=== PATIENT | female | born 1950 | race Two or more races ===

== ENCOUNTER 2016-12-26 02:47 | Emergency (ER) | payer OTHER, MEDICAID ==
[2016-12-26 03:06] VITALS: BP 142/90; BMI 25.0
--- NOTE | 2016-12-26 03:24 | DR.GENAD ---
HPI - PCP Primary Care Physician: Dr. Blackmon - Complaint/Symptoms Chief Complaint:: C/O of Epigastric pain through to back and up through chest and up into shoulders. Patient also c/o nausea but denies any vomiting. Patient states that she thinks that she would feel better is she could vomit. Self Treatment fo Chief Complaint: Patient has been on Bactrim for UTI x 3 doses and the pain has started since then. - Source History Provided: Patient, Family Member - Mode of Arrival Mode of Arrival: Ambulatory - Timing Onset of Chief Complaint: 12/25/16 PMH - PMH Past Medical History: Yes Past Medical History: Depression, GERD Past Medical History Comment: Colitis Past Surgical History: Yes Surgical History: Cholecystectomy, Hysterectomy Past Surgical History Comment: Varicose veins stripped - Family History History of Family Medical Conditions: Yes Family Medical History: Diabetes Mellitus, Hypertension Family Medical History Comment: Renal disease - Social History Does any household member use tobacco: No Alcohol Use: None Do you use any recreational Drugs:: No Lives With: Family Lives Where: Home - infectious screening In the last 2 months have you had wt loss of >10#?: NO Have you had fever, night sweats or hemotysis?: No Have you traveled outside the country in the last 6 months?: Yes Details about traveling: She has traveled to [place] and came back in September Isolation: Standard ROS - Review of Systems Eyes: No Symptoms Reported ENTM: No Symptoms Reported Respiratoy: No Symptoms Reported Cardiovascular: No Symptoms Reported Gastrointestinal/Abdominal: Abdominal Pain, Nausea Genitourinary: No Symptoms Reported Neurological: No Symptoms Reported Musculoskeletal: No Symptoms Reported Integumentary: No Symptoms Reported Hematologic/Lymphatic: No Symptoms Reported Endocrine: No Symptoms Reported Psychiatric: No Symptoms Reported All Other Systems: Reviewed and Negative PE - Vital Signs Vitals: Temperature 97.7 F Pulse Rate 70 Respiratory Rate 20 Blood Pressure [Right Arm] 106/56 Blood Pressure 142/90 O2 Sat by Pulse Oximetry 96 - General Limitations: Language Barrier General Appearance: Alert, In No Apparent Distress - Head Head Exam: Normal Inspection, Atraumatic - Eyes Eye exam: Normal Appearance, PERRL, EOMI - ENT ENT Exam: Normal Exam External Ear Exam: Normal External Inspection TM/Canal Exam: Bilateral Normal Nose Exam: Normal Nose Exam Mouth Exam: Normal Inspection Throat Exam: Normal Inspection - Neck Neck Exam: Normal Inspection - Chest Chest Inspection: Normal Inspection - Respiratory Respiratory Exam: Normal Lung Sounds Bilat Respiratory Exam: Bilateral Clear to Auscultation - Cardiovascular Cardiovascular Exam: Regular Rate - Abdominal Exam Abdominal Exam: Normal Inspection Abdominal Tenderness: RLQ - Extremities Extremities Exam: Normal Inspection, Full ROM - Back Back Exam: Normal Inspection, Full ROM - Neurologic Neurological Exam: Alert, Oriented X3, CN II-XII Intact - Psychiatric Psychiatric Exam: Normal Affect, Normal Mood - Skin Skin Exam: Warm, Dry, Intact Course - Reevaluation 1st: Unchanged ROR - Labs Reviewed Result Diagrams: 12/26/16 03:30 12/26/16 03:30 Laboratory: WBC 4.7 X10^3/uL (3.6-10.0) 12/26/16 03:30 RBC 4.54 X10^6/uL (3.5-5.4) 12/26/16 03:30 Hgb 13.5 g/dL (12.0-16.0) 12/26/16 03:30 Hct 39.1 % (36.0-47.0) 12/26/16 03:30 MCV 86.2 fL (80.0-100.0) 12/26/16 03:30 MCH 29.8 pg (27.0-34.0) 12/26/16 03:30 MCHC 34.5 g/dL (33.0-35.0) 12/26/16 03:30 RDW 13.2 % (11.6-16.5) 12/26/16 03:30 Plt Count 194 X10^3/uL (150.0-450.0) 12/26/16 03:30 MPV 7.7 fL (7.4-11.0) 12/26/16 03:30 Neut % 58.1 % (42.0-75.0) 12/26/16 03:30 Lymph % 30.3 % (21.0-51.0) 12/26/16 03:30 Nolan % 8.0 % (0.0-13.0) 12/26/16 03:30 Eos % 3.2 % (0.9-2.9) H 12/26/16 03:30 Baso % 0.4 % (0.2-1.0) 12/26/16 03:30 Neut # 2.8 x10^3/uL (2.2-4.8) 12/26/16 03:30 Lymph # 1.4 X10^3/uL (1.3-2.9) 12/26/16 03:30 Nolan # 0.4 x10^3/uL (0.3-0.8) 12/26/16 03:30 Eos # 0.2 x10^3/uL (0.0-0.2) 12/26/16 03:30 Baso # 0.0 X10^3/uL (0.0-0.1) 12/26/16 03:30 Absolute Nucleated RBC 0.0 /100WBC 12/26/16 03:30 Sodium 141 mmol/L (136-145) 12/26/16 03:30 Corrected Sodium 141 mmol/L (136-145) 12/26/16 03:30 Potassium 3.9 mmol/L (3.5-5.1) 12/26/16 03:30 Chloride 107 mmol/L (98-107) 12/26/16 03:30 Carbon Dioxide 28.2 mmol/L (21-32) 12/26/16 03:30 BUN 11 mg/dL (7-18) 12/26/16 03:30 Creatinine 1.17 mg/dL (0.55-1.02) H 12/26/16 03:30 Est GFR (MDRD) Af Amer 60 (>60) 12/26/16 03:30 Est GFR (MDRD) Non-Af 49 (>60) L 12/26/16 03:30 Glucose 111 mg/dL (65-99) H 12/26/16 03:30 Calcium 9.5 mg/dL (8.5-10.1) 12/26/16 03:30 Corrected Calcium TNP 12/26/16 03:30 Total Bilirubin 0.20 mg/dL (0.2-1.0) 12/26/16 03:30 AST 14 Units/L (15-37) L 12/26/16 03:30 ALT 21 Units/L (12-78) 12/26/16 03:30 Alkaline Phosphatase 101 Units/L (46-116) 12/26/16 03:30 Creatine Kinase 57 Units/L (26-192) 12/26/16 03:30 CK-MB (CK-2) < 1.0 ng/mL (0-4.0) 12/26/16 03:30 CK/CKMB % Calc 1.8 % (<4) 12/26/16 03:30 Troponin I < 0.02 ng/mL (0-1.5) 12/26/16 03:30 C-Reactive Protein 0.90 mg/L (0-3.0) 12/26/16 03:30 Total Protein 7.8 g/dL (6.4-8.2) 12/26/16 03:30 Albumin 4.0 g/dL (3.4-5.0) 12/26/16 03:30 Globulin 3.8 g/dL (2.5-4.5) 12/26/16 03:30 Albumin/Globulin Ratio 1.1 Ratio (1.1-2.1) 12/26/16 03:30 Amylase 71 Units/L (25-115) 12/26/16 03:30 Lipase 172 Units/L (73-393) 12/26/16 03:30 H. pylori IgG Antibody Negative (NEGATIVE) 12/26/16 03:30 - XRAY XRAY Interpreted by: Radiologist (CT Abd/Pelv: No significant abnormality identified) - Diagnosis Discharge Problem: Abdominal pain Qualifiers: Abdominal location: epigastric Qualified Code(s): R10.13 - Epigastric pain - Discharge Plan Condition: Stable - Follow ups/Referrals Follow ups/Referrals: Kurt Blackmon [Primary Care Provider] - 3 days - Instructions
[2016-12-26] MEDS ORDERED: MORPHINE SULFATE INJ 4 MG IVP ONE (03:28)
[2016-12-26] MEDS ORDERED: NS 1000 ML 1,000 ML ONE (03:32)
[2016-12-26] MEDS ORDERED: MORPHINE SULFATE INJ 4 MG ONE (03:33)
[2016-12-26 03:44] LABS: BASOPHILS % (AUTO) 0.4 % (0.2-1.0); EOSINOPHILS # (AUTO) 0.2 x10^3/uL (0.0-0.2); EOSINOPHILS % (AUTO) 3.2 % (0.9-2.9); HEMATOCRIT 39.1 % (36.0-47.0); HEMOGLOBIN 13.5 g/dL (12.0-16.0); LYMPHOCYTES # (AUTO) 1.4 X10^3/uL (1.3-2.9); LYMPHOCYTES % (AUTO) 30.3 % (21.0-51.0); MEAN CORPUSCULAR HEMOGLOBIN 29.8 pg (27.0-34.0); MEAN CORPUSCULAR HGB CONC 34.5 g/dL (33.0-35.0); MEAN CORPUSCULAR VOLUME 86.2 fL (80.0-100.0); MEAN PLATELET VOLUME 7.7 fL (7.4-11.0); MONOCYTES # (AUTO) 0.4 x10^3/uL (0.3-0.8); NEUTROPHILS # (AUTO) 2.8 x10^3/uL (2.2-4.8); NEUTROPHILS % (AUTO) 58.1 % (42.0-75.0); PLATELET COUNT 194 X10^3/uL (150.0-450.0); RED BLOOD COUNT 4.54 X10^6/uL (3.5-5.4); RED CELL DISTRIBUTION WIDTH 13.2 % (11.6-16.5); WHITE BLOOD COUNT 4.7 X10^3/uL (3.6-10.0)
[2016-12-26] MEDS ORDERED: BENADRYL INJ 50 MG VIAL ONE (03:51)
[2016-12-26] MEDS ORDERED: BENADRYL INJ 50 MG VIAL IVP ONE (03:52)
[2016-12-26 03:53] LABS: ALANINE AMINOTRANSFERASE 21 Units/L (12-78); ALKALINE PHOSPHATASE 101 Units/L (46-116); AMYLASE 71 Units/L (25-115); ASPARTATE AMINO TRANSFERASE 14 Units/L (15-37); BLOOD UREA NITROGEN 11 mg/dL (7-18); CALCIUM 9.5 mg/dL (8.5-10.1); CARBON DIOXIDE 28.2 mmol/L (21-32); CHLORIDE 107 mmol/L (98-107); COR NA(FOR HYPERGLY) 141 mmol/L (136-145); CREATININE 1.17 mg/dL (0.55-1.02); LIPASE 172 Units/L (73-393); SODIUM 141 mmol/L (136-145); TOTAL PROTEIN 7.8 g/dL (6.4-8.2); eGFR BLACK RACES 60 (>60); eGFR NON BLACK RACES 49 (>60)
[2016-12-26] MEDS ORDERED: ZOFRAN INJ 4 MG VIAL IVP ONE (03:59)
[2016-12-26] MEDS ORDERED: ZOFRAN INJ 4 MG VIAL ONE (03:59)
[2016-12-26] MEDS ORDERED: NS 1000 ML 1,000 ML IV SCH (04:00)
[2016-12-26] MEDS ORDERED: NS 100 ML IV 100 ML IV ONE (05:17)
[2016-12-26 08:09] LABS: CKMB % 1.8 % (<4); CREATINE KINASE 57 Units/L (26-192); CREATINE KINASE MB < 1.0 ng/mL (0-4.0); TROPONIN I < 0.02 ng/mL (0-1.5)
== END 2016-12-26 09:00 | disposition home or self-care (01) ==
LOC: ER 02:47
DX: R10.13 Epigastric pain (principal)
CPT/HCPCS: 36415; 74177; 80053; 82150; 82550; 82553; 83690; 84484; 85025; 86140; 86677; 96365; 96367; 96374; 96375; 99283; A4222; J1200; J2270; J2405

== ENCOUNTER 2017-02-19 08:16 | Day surgery (SDC) | payer OTHER, MEDICAID ==
[2017-02-19] MEDS ORDERED: D5 LR 1000 ML 1,000 ML IV ONE (08:28)
[2017-02-19] MEDS ORDERED: DIPRIVAN VIAL 20 ML ONE (09:59)
[2017-02-19 10:32] VITALS: BP 115/56
== END 2017-02-19 10:30 | disposition home or self-care (01) ==
LOC: SURG1 08:16
PROVIDERS: ATTEND Internal Medicine Gastroenterology
PROC: 0DB68ZX Excision of Stomach, Via Natural or Artificial Opening Endoscopic, Diagnostic (ICD-10-PCS; principal; 2017-02-19 12:15)
PROC: 0DB88ZX Excision of Small Intestine, Via Natural or Artificial Opening Endoscopic, Diagnostic (ICD-10-PCS; principal; 2017-02-19 12:15)
PROC: 0DJ08ZZ Inspection of Upper Intestinal Tract, Via Natural or Artificial Opening Endoscopic (ICD-10-PCS; principal; 2017-02-19 12:15)
DX: R10.13 Epigastric pain (principal); R11.0 Nausea; K20.8 Other esophagitis; K44.9 Diaphragmatic hernia without obstruction or gangrene; K29.60 Other gastritis without bleeding
CPT/HCPCS: A4217; J3490; J7120

== ENCOUNTER 2017-02-26 08:20 | Day surgery (SDC) | payer OTHER, MEDICAID ==
[2017-02-26] MEDS ORDERED: D5 LR 1000 ML 1,000 ML IV ONE (08:35)
[2017-02-26] MEDS ORDERED: DIPRIVAN VIAL 20 ML ONE (10:52)
[2017-02-26 12:35] VITALS: BP 118/67
== END 2017-02-26 11:40 | disposition home or self-care (01) ==
LOC: SURG1 08:20
PROVIDERS: ATTEND Internal Medicine Gastroenterology
PROC: 0DJD8ZZ Inspection of Lower Intestinal Tract, Via Natural or Artificial Opening Endoscopic (ICD-10-PCS; principal; 2017-02-26 11:15)
PROC: 0DBK8ZX Excision of Ascending Colon, Via Natural or Artificial Opening Endoscopic, Diagnostic (ICD-10-PCS; principal; 2017-02-26 11:15)
DX: R10.32 Left lower quadrant pain (principal); R10.12 Left upper quadrant pain; K92.1 Melena; R19.4 Change in bowel habit; K63.5 Polyp of colon; K63.89 Other specified diseases of intestine; K64.0 First degree hemorrhoids; D12.2 Benign neoplasm of ascending colon
CPT/HCPCS: A4217; J3490; J7120

== ENCOUNTER 2019-07-27 22:30 | Inpatient (IN) ==
[2019-07-27] MEDS ORDERED: LEVSIN/MAALOX/LIDOC VISC PO ONE (22:46)
[2019-07-27] MEDS ORDERED: LEVSIN/MAALOX/LIDOC VISC ONE (22:52)
--- NOTE | 2019-07-27 22:58 | ED.ABDFE ---
HPI Time Seen Time Seen by Provider: 07/27/19 22:46 PCP Primary Care Physician: MELISSA Mccoy Doctors Chief Complaint Comments: A 68 y/o female presenting with epigastric abdominal and lower abdominal pain times 1.5 weeks now. It has been present co nstantly since after her lunch at about 1400 hrs. today. She states it worsens with meals. She has not had nausea or vomiting. She has known PUD, had EGD about 5 months ago and is maintained on both Protonix 40 mg daily + Pepcid 20 mg BID both of which she has taken today. She denies hx. of nicotine or alcohol use. She is s/p cholecystectomy by hx. Chief Complaint:: ABDOMINAL PAIN; REFLUX X1 WEEK COVID-19 Coronavirus risk:travel/contact w/high risk person: No Has patient experienced Coronavirus symptoms: No Reviewed Nurses Notes Review: Yes Source History Provided: Patient and Bystander Mode of arrival Mode of Arrival: Wheelchair Timing Onset of Chief Complaint: 07/16/19 Duration How lon Duration: Days Location Location: Epigastric Context History of: Similar pain (dx) (PUD) Modifying factors Worsening Factors: Food Associated signs and symptoms Associated Signs and Symptoms: None PMH PMH Past Medical History: Yes Past Medical History: Anxiety, Depression, GERD and PUD Past Surgical History: Yes Surgical History: Cholecystectomy and Hysterectomy Family History History of Family Medical Conditions: Yes Family Medical History: Diabetes Mellitus and Hypertension Social History Do you use any recreational Drugs:: No Travel Risk Coronavirus risk:travel/contact w/high risk person: No Has patient experienced Coronavirus symptoms: No Infectious screening In the last 2 months have you had wt loss of >10#?: NO Have you had fever, night sweats or hemotysis?: No Have you traveled outside the country in the last 6 months?: No Isolation: Standard ROS Review of Systems Constitutional: No Symptoms Reported Eyes: No Symptoms Reported ENTM: No Symptoms Reported Respiratoy: No Symptoms Reported Cardiovascular: No Symptoms Reported Gastrointestinal/Abdominal: Abdominal Pain (epigastric) Genitourinary: No Symptoms Reported Neurological: No Symptoms Reported Musculoskeletal: No Symptoms Reported Integumentary: No Symptoms Reported Hematologic/Lymphatic: No Symptoms Reported Endocrine: No Symptoms Reported Psychiatric: No Symptoms Reported All Other Systems: Reviewed and Negative PE Vital Signs Vitals: Temperature 98.7 F Pulse Rate [Radial] 56 Pulse Rate 59 Respiratory Rate 16 Blood Pressure [Right Arm] 121/56 Blood Pressure 140/67 O2 Sat by Pulse Oximetry 94 General Limitations: No Limitations and Language Barrier (her daughter was here translating for us. ) General Appearance: Alert and In No Apparent Distress Head Head Exam: Normal Inspection, Atraumatic and Normocephalic Eyes Eye exam: Normal Appearance and EOMI ENT ENT Exam: Normal Exam, Normal Oropharynx, Normal External Ear Exam and Mucous Membranes Moist Neck Neck Exam: Normal Inspection, Full ROM and Trachea Midline Chest Chest Inspection: Normal Inspection and Symmetric Chest Wall Rise Respiratory Respiratory Exam: Normal Lung Sounds Bilat Cardiovascular Cardiovascular Exam: Regular Rate, Normal Rhythm, Normal Heart Sounds, +S1 and +S2 Abdominal Exam Abdominal Exam: Normal Inspection, Normal Bowel Sounds, Soft and Tenderness; negative Distention, Guarding, Rebound, Rigidity, Dimnished Bowel Sounds, Hyperactive Bowel Sounds, Hypoactive Bowel Sounds, Organomegaly, Trauma, Incision, Ascites, Mass, Bruit, Pulsatile Mass and Hernia Abdominal Tenderness: RLQ, LLQ and Epigastrium Rectal Rectal Exam: Deferred Back Back Exam: Normal Inspection and Full ROM Extremeties Extremities Exam: Normal Inspection and Full ROM External Exam: Female: Deferred Neurologic Neurological Exam: Alert and Oriented X3 Psychiatric Psychiatric Exam: Normal Affect and Normal Mood Skin Skin Exam: Dry and Normal Color COURSE Reevaluation 1st: Improved (with regard to upper abdominal pain only) Education/Counseling Education/Counseling: Patient, Family, Education and Counseling Educated On: Treatment, Diagnosis, Prognosis and Needs for Follow Up ROR Labs Reviewed Laboratory Results Reviewed?: Yes Result Diagrams: 07/27/19 22:54 07/27/19 22:54 Laboratory: WBC 4.5 X10^3/uL (3.6-10.0) 07/27/19 22:54 RBC 4.08 X10^6/uL (3.5-5.4) 07/27/19 22:54 Hgb 12.6 g/dL (12.0-16.0) 07/27/19 22:54 Hct 36.7 % (36.0-47.0) 07/27/19 22:54 MCV 89.9 fL (80.0-100.0) 07/27/19 22:54 MCH 30.9 pg (27.0-34.0) 07/27/19 22:54 MCHC 34.3 g/dL (33.0-35.0) 07/27/19 22:54 RDW 13.8 % (11.6-16.5) 07/27/19 22:54 Plt Count 149 X10^3/uL (150.0-450.0) L 07/27/19 22:54 MPV 7.8 fL (7.4-11.0) 07/27/19 22:54 Neut % (Auto) 62.0 % (42.0-75.0) 07/27/19 22:54 Lymph % (Auto) 28.6 % (21.0-51.0) 07/27/19 22:54 Letcher % (Auto) 7.2 % (0.0-13.0) 07/27/19 22:54 Eos % (Auto) 1.5 % (0.9-2.9) 07/27/19 22:54 Baso % (Auto) 0.7 % (0.2-1.0) 07/27/19 22:54 Neut # (Auto) 2.8 x10^3/uL (2.2-4.8) 07/27/19 22:54 Lymph # (Auto) 1.3 X10^3/uL (1.3-2.9) 07/27/19 22:54 Letcher # (Auto) 0.3 x10^3/uL (0.3-0.8) 07/27/19 22:54 Eos # (Auto) 0.1 x10^3/uL (0.0-0.2) 07/27/19 22:54 Baso # (Auto) 0.0 X10^3/uL (0.0-0.1) 07/27/19 22:54 Absolute Nucleated RBC 0.0 /100WBC 07/27/19 22:54 Sodium 144 mmol/L (136-145) 07/27/19 22:54 Corrected Sodium 144 mmol/L (136-145) 07/27/19 22:54 Potassium 3.6 mmol/L (3.5-5.1) 07/27/19 22:54 Chloride 108 mmol/L (98-107) H 07/27/19 22:54 Carbon Dioxide 26.2 mmol/L (21-32) 07/27/19 22:54 BUN 10 mg/dL (7-18) 07/27/19 22:54 Creatinine 0.93 mg/dL (0.55-1.02) 07/27/19 22:54 Est GFR (MDRD) Af Amer > 60 (>60) 07/27/19 22:54 Est GFR (MDRD) Non-Af > 60 (>60) 07/27/19 22:54 Glucose 113 mg/dL (65-99) H 07/27/19 22:54 Calcium 9.3 mg/dL (8.5-10.1) 07/27/19 22:54 Corrected Calcium TNP 07/27/19 22:54 Total Bilirubin 0.20 mg/dL (0.2-1.0) 07/27/19 22:54 AST 12 Units/L (15-37) L 07/27/19 22:54 ALT 17 Units/L (12-78) 07/27/19 22:54 Alkaline Phosphatase 76 Units/L (46-116) 07/27/19 22:54 Total Protein 7.0 g/dL (6.4-8.2) 07/27/19 22:54 Albumin 3.8 g/dL (3.4-5.0) 07/27/19 22:54 Globulin 3.2 g/dL (2.5-4.5) 07/27/19 22:54 Albumin/Globulin Ratio 1.2 Ratio (1.1-2.1) 07/27/19 22:54 Amylase 48 Units/L (25-115) 07/27/19 22:54 Lipase 132 Units/L (73-393) 07/27/19 22:54 Opioid Opioid Risk Tool Age (Nikunj box if 16-45): No History of Preadolescent Sexual Abuse: No Total: 0 Total Score Risk Category: Low Risk Copyright: [facility] predicting aberrant behaviors Diagnosis Discharge Problem: Intussusception of jejunum, Pancreatic mass, PUD (peptic ulcer disease), Anxiety Abdominal pain Qualifiers: Abdominal location: upper abdomen, unspecified Qualified Code(s): R10.10 - Upper abdominal pain, unspecified ADDITIONAL NOTES Additional Notes Additional Notes: Name: JL MULLINS : 1950 Sex: F Location: ER Order Number(s): [id number] Procedure(s):ABDOMEN/PELVIS WITH CON Ordering Physician: EDITH HART Primary Care: Kurt Blackmon Service Date: 07/27/19 Service Time: 2346 CT abdomen and pelvis with contrast Indication: Epigastric pain COMPARISON November 23, 2018 TECHNIQUE Helical images through the abdomen and pelvis after IV and oral contrast per protocol. Coronal and sagittal reformats provided FINDINGS Limited images through the lower chest shows scarring in the lung bases. Review of bone windows demonstrates spine DJD without destructive osseous lesion Abdomen: Gallbladder is absent. The liver, spleen, adrenal glands, stomach and duodenum demonstrate no acute abnormality. The pancreas shows dilatation of the pancreas duct. Hypodensity is suggested of the body of the pancreas on axial image 36. This is ill-defined and apparently is causing upstream dilatation of the duct of the pancreas tail, measuring 2.4 x 2.0 x 1.9 centimeters on axial image 36 and coronal image 19 (AP, trans, cc). Pancreas neoplasm is suspected. The kidneys show no hydroureteronephrosis. Retroaortic left renal vein incidentally noted. The mass probably compresses the splenic vein on axial image 35, with perisplenic varices noted. These are new from the prior. Oral contrast enters the small bowel, which is mildly prominent, with minimal wall thickening. There is jejuno jejunal intussusception seen on sagittal image 12 and coronal images 31-18, measuring at least 7 centimeters in length. Colonic diverticulosis is noted, with relative collapse of the colon. Appendix is normal. Pelvis: Urinary bladder and rectum are normal. Uterus is absent. No adnexal region lesions seen. IMPRESSION 1. Pancreas massive dilatation of the pancreas ducts at the tail upstream from the mass. This invades the splenic vein which is occluded, with collateral varices seen around the stomach. Pancreas cancer is presumed. Surgical follow-up will be needed. 2. Mild prominence of the jejunum with minimal wall thickening and intussusception of jejunojejunostomy loops, as above. This could be transient and related to the mild jejunal inflammation, favoring an enteritis. Nevertheless, follow-up will be needed to exclude persistence of the intussusception and/or developing worsening bowel pathology. Surgical evaluation recommended. 3. Discussed with Fuentes by Dr. Strong Electronically signed by: ARCADIO STRONG (July 28, 2019 03:04:40)
[2019-07-27 23:10] LABS: BASOPHILS % (AUTO) 0.7 % (0.2-1.0); EOSINOPHILS # (AUTO) 0.1 x10^3/uL (0.0-0.2); EOSINOPHILS % (AUTO) 1.5 % (0.9-2.9); HEMATOCRIT 36.7 % (36.0-47.0); HEMOGLOBIN 12.6 g/dL (12.0-16.0); LYMPHOCYTES # (AUTO) 1.3 X10^3/uL (1.3-2.9); LYMPHOCYTES % (AUTO) 28.6 % (21.0-51.0); MEAN CORPUSCULAR HEMOGLOBIN 30.9 pg (27.0-34.0); MEAN CORPUSCULAR HGB CONC 34.3 g/dL (33.0-35.0); MEAN CORPUSCULAR VOLUME 89.9 fL (80.0-100.0); MEAN PLATELET VOLUME 7.8 fL (7.4-11.0); MONOCYTES # (AUTO) 0.3 x10^3/uL (0.3-0.8); MONOCYTES % (AUTO) 7.2 % (0.0-13.0); NEUTROPHILS # (AUTO) 2.8 x10^3/uL (2.2-4.8); PLATELET COUNT 149 X10^3/uL (150.0-450.0); RED BLOOD COUNT 4.08 X10^6/uL (3.5-5.4); RED CELL DISTRIBUTION WIDTH 13.8 % (11.6-16.5); WHITE BLOOD COUNT 4.5 X10^3/uL (3.6-10.0)
[2019-07-27 23:16] LABS: ALANINE AMINOTRANSFERASE 17 Units/L (12-78); ALBUMIN 3.8 g/dL (3.4-5.0); ALKALINE PHOSPHATASE 76 Units/L (46-116); AMYLASE 48 Units/L (25-115); ASPARTATE AMINO TRANSFERASE 12 Units/L (15-37); BLOOD UREA NITROGEN 10 mg/dL (7-18); CALCIUM 9.3 mg/dL (8.5-10.1); CARBON DIOXIDE 26.2 mmol/L (21-32); CHLORIDE 108 mmol/L (98-107); COR NA(FOR HYPERGLY) 144 mmol/L (136-145); CREATININE 0.93 mg/dL (0.55-1.02); LIPASE 132 Units/L (73-393); SODIUM 144 mmol/L (136-145); eGFR NON BLACK RACES > 60 (>60)
--- NOTE | 2019-07-28 03:06 | CT ---
CT abdomen and pelvis with contrastIndication: Epigastric painCOMPARISONSeptember 2018TECHNIQUEHelical images through the abdomen and pelvis after IV and oral contrast per protocol. Coronal and sagittal reformats providedFINDINGSLimited images through the lower chest shows scarring in the lung bases. Review of bone windows demonstrates spine DJD without destructive osseous lesionAbdomen: Gallbladder is absent. The liver, spleen, adrenal glands, stomach and duodenum demonstrate no acute abnormality. The pancreas shows dilatation of the pancreas duct. Hypodensity is suggested of the body of the pancreas on axial image 36. This is ill-defined and apparently is causing upstream dilatation of the duct of the pancreas tail, measuring 2.4 x 2.0 x 1.9 centimeters on axial image 36 and coronal image 19 (AP, trans, cc). Pancreas neoplasm is suspected.The kidneys show no hydroureteronephrosis. Retroaortic left renal vein incidentally noted. The mass probably compresses the splenic vein on axial image 35, with perisplenic varices noted. These are new from the prior.Oral contrast enters the small bowel, which is mildly prominent, with minimal wall thickening. There is jejuno jejunal intussusception seen on sagittal image 12 and coronal images 31-18, measuring at least 7 centimeters in length. Colonic diverticulosis is noted, with relative collapse of the colon. Appendix is normal.Pelvis: Urinary bladder and rectum are normal. Uterus is absent. No adnexal region lesions seen.IMPRESSION1. Pancreas massive dilatation of the pancreas ducts at the tail upstream from the mass. This invades the splenic vein which is occluded, with collateral varices seen around the stomach. Pancreas cancer is presumed. Surgical follow-up will be needed.2. Mild prominence of the jejunum with minimal wall thickening and intussusception of jejunojejunostomy loops, as above. This could be transient and related to the mild jejunal inflammation, favoring an enteritis. Nevertheless, follow-up will be needed to exclude persistence of the intussusception and/or developing worsening bowel pathology. Surgical evaluation recommended.3. Discussed with Fuentes by Dr. StrongElectronically signed by: ARCADIO STRONG (July 28, 2019 03:04:40)
[2019-07-28] MEDS ORDERED: TYLENOL 325 MG TAB PO PRN (03:23)
[2019-07-28] MEDS ORDERED: ZOFRAN INJ 4 MG VIAL IVP PRN (03:40)
[2019-07-28] MEDS ORDERED: ZOFRAN INJ 4 MG VIAL ONE (04:11)
[2019-07-28] MEDS ORDERED: NS 1000 ML 1,000 ML ONE (04:37)
[2019-07-28] MEDS: NS 1000 ML 1,000 ML IV SCH ×4 (04:40→23:18)
[2019-07-28 05:07] VITALS: BMI 21.7
[2019-07-28] MEDS: PROTONIX INJ 40 MG VIAL IVP SCH (10:46)
[2019-07-28] MEDS ORDERED: DILAUDID INJ IVP PRN (11:03)
[2019-07-28] MEDS ORDERED: TORADOL 15 MG VIAL IVP PRN (11:14)
[2019-07-28] MEDS: PEPCID TAB 20 MG PO SCH ×2 (12:52→21:36)
--- NOTE | 2019-07-28 14:11 | RAD ---
HISTORYSMALL BOWEL OBSTRUCTION, ABD PAINSTUDYKUB x-ray abdomen one viewCOMPARISONCT from same dayFINDINGSGI contrast is seen throughout the colon. Likely mild right-sided constipation. No contrast is seen in the small bowel. No evidence of small-bowel dilation. Minimal small bowel air is seen in the mid to distal small bowel. Surgical clips are seen in the right upper quadrant the abdomen.IMPRESSIONNo evidence of small-bowel obstruction. Likely mild right-sided constipation.Electronically signed by: Jt Monge (July 28, 2019 14:09:20)
[2019-07-28] MEDS ORDERED: NS 100 ML IV 100 ML IV ONE (14:46)
--- NOTE | 2019-07-28 16:51 | MRI ---
MRI, ABDOMEN W/WO CONTRASTClinical indication: Pancreatic massProcedure: Multiplanar multi sequence MRI of the abdomen were obtained with and without the administration of intravenous contrast according to standard departmental protocol.Contrast: 17 cc of MultiHanceComparisons:July 28, 2019, 04/03/2018Findings:MRI of the abdomen without contrast: No significant iron or fat deposition in the liver or spleen. No significant ascites.MRI of the abdomen with contrast: Liver and spleen are normal in size and morphology. No focal lesions. Gallbladder absent. No filling defects within the common bile duct. Common bile duct measures 12 mm. Pancreas demonstrates normal T1 signal. Redemonstrated within the body of the pancreas is a 2.6 x 2.8 cm late enhancing mass with upstream dilatation of the main pancreatic duct up to 7 mm. This mass appears to obliterate the splenic vein which is collateralized. Adrenal glands are normal Kidneys demonstrate normal cortical medullary differentiation. No hydronephrosis. No suspicious lymph nodes. Patient's previously mention intussusception is not visible.Impression:1. Re-demonstration of pancreatic body mass which has not changed and demonstrates obliteration of the splenic vein. This is consistent with pancreatic adenocarcinoma. No definite evidence of distant metastatic disease.Electronically signed by: DEMAR CHUNG (July 28, 2019 16:49:58)
[2019-07-28] MEDS: CARAFATE PO SCH ×2 (17:27→21:36)
[2019-07-28] MEDS ORDERED: CRESTOR TAB 10 MG PO SCH (21:00)
[2019-07-28] MEDS: XANAX PO SCH ×2 (21:36)
--- NOTE | 2019-07-28 21:52 | DR.H&P ---
H&P - History & Physical for Day of: H&P Date: 07/28/19 - Chief Complaint Chief Complaint: ABDOMINAL PAIN - History of Present Illness History of Present Illness: MS.DE REARDON IS A 68 YEAR OLD PATIENT OF OURS WHO PRESENTED TO THE ER WITH EPIGASTRIC ABDOMINAL PAIN, LOWER ABDOMINAL PAIN, AND REFLUX. SYMPTOMS STARTED 1-2 WEEKS AGO AND HAVE PROGRESSIVELY GOTTEN WORSE. SHE REPORTS PAIN A 6/10. IT IS DESCRIBED CONSTANT AND DULL. PAIN AND REFLUX WORSEN WITH MEALS. SHE DENIES NAUSEA OR VOMITING. SHE HAS A KNOWN HISTORY OF PUD FOR WHICH SHE IS CURRENTLY ON PROTONIX 40MG PO DAILY AND PEPCID 20MG PO BID. OTHER PMH INCLUDES ANXIETY, DEPRESSION, CHOLECYSTECTOMY, AND HYSTERECTOMY. ON ARRIVAL TO THE ER, VITALS WERE 98.7-68-18-92%RA-135/63. LABS WERE OBTAINED. ABNORMAL LAB VALUES INCLUDE THE FOLLOWING: PLT COUNT 149, CHLORIDE 108, GLUCOSE 113, AST 12. AN ABDOMEN/PELVIS CT WITH CONTRAST WAS OBTAINED AND REVEALED: Pancreas massive dilatation of the pancreas ducts at the tail upstream from the mass. This invades the splenic vein which is occluded, with collateral varices seen around the stomach. Pancreas cancer is presumed. Surgical follow-up will be needed. 2. Mild prominence of the jejunum with minimal wall thickening and intussusception of jejunojejunostomy loops, as above. This could be transient and related to the mild jejunal inflammation, favoring an enteritis. Nevertheless, follow-up will be needed to exclude persistence of the intussusception and/or developing worsening bowel pathology. Surgical evaluation recommended. SHE WAS GIVEN GI COCKTAIL 30ML PO X 1 DOSE IN THE ER. SHE WAS ADMITTED FOR FURTHER EVALUATION AND TREATMENT OF JEJUNUM INSUSSUSCEPTION, PANCREATIC MASS, AND ANXIETY. SHE WAS STARTED ON NS AT 125ML/HR, TORADOL 15MG IV Q6H PRN PAIN, DILAUDID 1MG IV Q4H PRN PAIN, ZOFRAN 4MG IV Q6H PRN NAUSEA, PEPCID 20MG PO BID, PROTONIX 40MG IV BID, AND HOME MEDICATIONS WERE RESUMED. TODAY, WE WILL CONSULT WITH , GENERAL SURGEON. OTHERWISE, WE WILL CONTINUE WITH CURRENT PLAN OF CARE. WE PLAN TO FOLLOW UP WITH AM LABS AND CONTINUE TO MONITOR. - Past Medical History Past Medical History: Depression, Anxiety, PUD, GERD - Past Surgical History Surgical History: Cholecystectomy, Hysterectomy - Family History Family Medical History: Diabetes Mellitus, Hypertension - Social History Alcohol Use: None - Medications Home Medications: morphine Adverse Reaction (Verified 04/03/18 16:17) CONTINUE taking the following medications famotidine 20 mg PO DAILY 07/28/19 [History] polyethylene glycol 3350 [Miralax] 17 g PO DAILY PRN 07/28/19 [History] rosuvastatin 5 mg PO HS 07/28/19 [History] sucralfate 1 g PO QID 07/28/19 [History] - Review of Systems Constitutional: See HPI, Weakness. denies: Fever, Chills Eyes: No Symptoms Reported ENT: No Symptoms Reported Respiratory: No Symptoms Reported Cardiovascular: No Symptoms Reported Gastrointestinal: See HPI, Abdominal Pain. denies: Nausea, Vomiting Genitourinary: No Symptoms Reported Musculoskeletal: No Symptoms Reported Skin: No Symptoms Reported Neurological: Weakness - Physical Exam Vital Signs: Temperature 98.7 F Pulse Rate [Radial] 63 Pulse Rate 57 Respiratory Rate 20 Blood Pressure [Left Arm] 125/62 Blood Pressure [Right Arm] 121/56 Blood Pressure 141/64 O2 Sat by Pulse Oximetry 98 Oriented: Normal Eyes: Normal Ear: Normal Nose: Normal Throat: Normal Respiratory: Diminished Throughout Cardiovascular: Normal. negative: S3, S4, Murmur : Normal Auscultation: Bowel Sounds: Normal Palpation: Normal Tenderness: Diffuse, Moderate. negative: Rebound, Guarding, Rigidity Skin: Normal Musculoskeletal: Normal Psychiatric: Normal Mood Description: Calm Affect: Normal Speech Pattern: Clear - Assessment/Plan (1) Pancreatic mass Status: Acute (2) Intussusception of jejunum Status: Acute Plan: ADMIT, NS AT 125ML/HR, TORADOL 15MG IV Q6H PRN PAIN, DILAUDID 1MG IV Q4H PRN PAIN, ZOFRAN 4MG IV Q6H PRN NAUSEA, PEPCID 20MG PO BID, PROTONIX 40MG IV BID, AND HOME MEDICATIONS WERE RESUMED, SURGICAL CONSULT, CONTINUE TO MONITOR (3) Abdominal pain Qualifiers: Abdominal location: upper abdomen, unspecified Qualified Code(s): R10.10 - Upper abdominal pain, unspecified Status: Acute (4) PUD (peptic ulcer disease) Status: Acute (5) Anxiety Status: Acute - Allergies Allergies/Adverse Reactions: Allergies Allergy/AdvReac Type Severity Reaction Status Date / Time morphine AdvReac Verified 04/03/18 16:17
[2019-07-29] MEDS: NS 1000 ML 1,000 ML IV SCH ×2 (04:14→08:00)
[2019-07-29 05:35] LABS: BASOPHILS % (AUTO) 0.3 % (0.2-1.0); EOSINOPHILS # (AUTO) 0.1 x10^3/uL (0.0-0.2); EOSINOPHILS % (AUTO) 1.9 % (0.9-2.9); HEMATOCRIT 37.1 % (36.0-47.0); HEMOGLOBIN 12.5 g/dL (12.0-16.0); LYMPHOCYTES # (AUTO) 1.1 X10^3/uL (1.3-2.9); LYMPHOCYTES % (AUTO) 27.4 % (21.0-51.0); MEAN CORPUSCULAR HEMOGLOBIN 30.8 pg (27.0-34.0); MEAN CORPUSCULAR HGB CONC 33.7 g/dL (33.0-35.0); MEAN CORPUSCULAR VOLUME 91.5 fL (80.0-100.0); MEAN PLATELET VOLUME 8.3 fL (7.4-11.0); MONOCYTES # (AUTO) 0.3 x10^3/uL (0.3-0.8); MONOCYTES % (AUTO) 6.5 % (0.0-13.0); NEUTROPHILS # (AUTO) 2.6 x10^3/uL (2.2-4.8); NEUTROPHILS % (AUTO) 63.9 % (42.0-75.0); PLATELET COUNT 138 X10^3/uL (150.0-450.0); RED BLOOD COUNT 4.05 X10^6/uL (3.5-5.4); RED CELL DISTRIBUTION WIDTH 13.5 % (11.6-16.5); WHITE BLOOD COUNT 4.1 X10^3/uL (3.6-10.0)
[2019-07-29 05:44] LABS: ALANINE AMINOTRANSFERASE 17 Units/L (12-78); ALBUMIN 3.5 g/dL (3.4-5.0); ALKALINE PHOSPHATASE 83 Units/L (46-116); ASPARTATE AMINO TRANSFERASE 15 Units/L (15-37); BLOOD UREA NITROGEN 8 mg/dL (7-18); CALCIUM 8.7 mg/dL (8.5-10.1); CARBON DIOXIDE 26.8 mmol/L (21-32); CHLORIDE 110 mmol/L (98-107); COR NA(FOR HYPERGLY) 144 mmol/L (136-145); CREATININE 0.76 mg/dL (0.55-1.02); SODIUM 144 mmol/L (136-145); TOTAL PROTEIN 6.5 g/dL (6.4-8.2); eGFR NON BLACK RACES > 60 (>60)
[2019-07-29] MEDS: PROTONIX INJ 40 MG VIAL IVP SCH (08:00)
[2019-07-29] MEDS: CARAFATE PO SCH (08:00)
[2019-07-29 08:17] VITALS: BP 124/65
[2019-07-29] MEDS: PEPCID TAB 20 MG PO SCH (09:18)
== END 2019-07-29 11:25 | disposition home or self-care (01) | DRG 439 ==
LOC: MED/SURG 22:34 → ER 22:34 → OBSVTOIN 07-28 03:33 → MED/SURG 07-28 04:18
PROVIDERS: ADMIT Internal Medicine; ATTEND Internal Medicine
CPT/HCPCS: 36415; 74000; 74018; 74177; 74183; 80053; 82150; 82378; 83690; 83735; 85025; 86301; 86316; 96365; 96374; 99284; A4222; C9113; J1170; J2405; J7030